=== PATIENT | female | born 1985 | race Two or more races ===

== ENCOUNTER 2017-07-15 08:24 | Day surgery (SDC) | payer MEDICAID ==
[~2017-07-15 08:24] MED LIST: CEFAZOLIN 1 GM INJ; METOCLOPRAMIDE 10 MG INJ; ONDANSETRON 4 MG INJ; SUGAMMADEX SODIUM 200 MG/2 ML VIAL IV
[2017-07-15 09:24] LABS: ADD MAN DIFF? NO
[2017-07-15 09:26] LABS: BASOPHIL # 0.1 10^3/ul (0.0-0.1); BASOPHILS % 0.9 % (0.0-2.0); EOSINOPHILS # 0.5 10^3/ul (0.0-0.5); EOSINOPHILS % 7.2 % (0.0-7.0); HEMATOCRIT 29.2 % (37.0-47.0); HEMOGLOBIN 8.8 g/dl (12.0-16.0); LYMPHOCYTES # 2.3 10^3/ul (0.8-2.9); LYMPHOCYTES % 33.5 % (15.0-51.0); MEAN CORPUSCULAR HGB CONC 30.1 g/dl (32.0-37.0); MEAN CORPUSCULAR VOLUME 76.4 fl (82.0-101.0); MEAN PLATELET VOLUME 9.6 fl (7.4-10.4); MONOCYTE # 0.5 10^3/ul (0.3-0.9); MONOCYTES % 6.9 % (0.0-11.0); NEUTROPHIL # 3.5 10^3/ul (1.6-7.5); NEUTROPHILS % 51.2 % (39.0-77.0); PLATELET COUNT 320 10^3/UL (140-415); RED BLOOD COUNT 3.82 10^6/ul (4.20-5.40); RED CELL DISTRIBUTION WIDTH 14.8 % (11.5-14.5)
[2017-07-15 09:26] LABS: WHITE BLOOD COUNT 6.8 10^3/ul (4.8-10.8)
[2017-07-15] MEDS ORDERED: MIDAZOLAM 1 MG/ML 2 ML INJ (09:29)
[2017-07-15] MEDS ORDERED: FENTAnyl 50 MCG/ML VIAL ×2 (09:29→11:56)
[2017-07-15 09:50] LABS: HOLD TRANSMISSIONS 1
[2017-07-15] MEDS ORDERED: SUCCINYLCHOLINE CHLORIDE 100 MG/5 ML SYG IV (09:58)
[2017-07-15] MEDS ORDERED: LIDOCAINE 100 MG SYRINGE (09:58)
[2017-07-15] MEDS ORDERED: ROCURONIUM 50 MG INJ (09:58)
[2017-07-15] MEDS ORDERED: PROPOFOL 20 ML (09:58)
[2017-07-15] MEDS ORDERED: FENTAnyl 50 MCG/ML VIAL IV (11:30)
[2017-07-15] MEDS ORDERED: HYDROmorphONE (0.2 MG/ML) 10ML SYG IV ×2 (11:30)
[2017-07-15] MEDS ORDERED: ONDANSETRON 4 MG INJ IV (11:30)
[2017-07-15] MEDS ORDERED: METOCLOPRAMIDE 10 MG INJ IV (11:30)
[2017-07-15] MEDS: FENTAnyl 50 MCG/ML VIAL IV ×2 (11:58→12:10)
[2017-07-15] MEDS: KETOROLAC 30 MG INJ IV (12:00)
== END 2017-07-15 13:05 | disposition home or self-care (01) ==
LOC: SDS 08:24
DX: Z30.2 Encounter for sterilization (principal)
CPT/HCPCS: 58670; 85025; 86850; 86900; 86901; 86920